=== PATIENT | female | born 1980 | race American Indian/Alaskan Native ===

== ENCOUNTER 2017-02-24 15:06 | Emergency (ER) | payer OTHER ==
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
[2017-02-24] MEDS ORDERED: NORCO 5/325 PO ONE (19:12)
[2017-02-24 21:25] VITALS: BP 135/81
[2017-02-24] MEDS ORDERED: NORCO 5/325 ONE (21:39)
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
== END 2017-02-24 22:06 | disposition home or self-care (01) ==
LOC: ED 15:06
DX: R07.81 Pleurodynia (principal); M25.511 Pain in right shoulder; V03.99XA Pedestrian with other conveyance injured in collision with car, pick-up truck or van, unspecified whether traffic or nontraffic accident, initial encounter; Y93.89 Activity, other specified; Y99.9 Unspecified external cause status; Y92.410 Unspecified street and highway as the place of occurrence of the external cause